=== PATIENT | male | born 1945 | race Caucasian/White ===

== ENCOUNTER 2019-09-06 20:26 | Inpatient (IN) | payer OTHER, MEDICARE ==
--- NOTE | 2019-09-06 20:43 | RADIOLOGY REPORT (SQ) ---
EXAM DESCRIPTION: CT HEAD WITHOUT IV CONTRAST COMPLETED DATE/TME: 09/06/2019 20:29 : CLINICAL HISTORY: 74 years Male signs symptoms stroke COMPARISON: None. TECHNIQUE: Contiguous axial CT images obtained through the brain without IV contrast. This exam was performed according to our department optimization program which includes automated exposure control, adjustment of the mA and/or kv according to patient size and/or use of iterative reconstruction technique. FINDINGS: Study is technically suboptimal. The ventricles and sulci are prominent consistent with atrophic changes. Previous infarct in the right MCA distribution involving predominantly the right frontal lobe but also segments of the basal ganglia and parietal lobe Microvascular ischemic changes. No midline shift or mass effect. No mass lesions. No acute hemorrhage. Atherosclerotic calcifications. No fluid or significant mucosal thickening in the visualized paranasal sinuses. No depressed calvarial fractures. IMPRESSION: No acute intracranial abnormality is identified. Dr. Todd was called and notified of the findings at 7:40 PM central time. Old right MCA infarct Generalized atrophy with microvascular ischemic changes.
[2019-09-06 21:11] LABS: HEMATOCRIT 29.7 % (37.9-51.0); HEMOGLOBIN 10.1 g/dL (13.5-17.0); MEAN CORPUSCULAR HEMOGLOBIN 29.3 pg (27.0-33.4); MEAN CORPUSCULAR HGB CONC 33.9 g/dL (32.0-36.0); MEAN CORPUSCULAR VOLUME 87 fl (80-97); PLATELET COUNT 352 10^3/uL (150-450); RED BLOOD COUNT 3.43 10^6/uL (4.35-5.55); RED CELL DISTRIBUTION WIDTH 15.2 % (11.5-14.0); WHITE BLOOD COUNT 12.2 10^3/uL (4.0-10.5)
[2019-09-06 21:16] LABS: INTERNATIONAL RATION (INR) 1.42; PARTIAL THROMBOPLASTIN TIME 35.6 SEC (23.5-35.8); PROTHROMBIN TIME 17.5 SEC (11.4-15.4)
--- NOTE | 2019-09-06 21:18 | RADIOLOGY REPORT (SQ) ---
XR CHEST 1 VIEW EXAM DATE: 09/06/2019 8:29 PM TIP LENGTH CHECKER HISTORY: Stroke. COMPARISON: None. FINDINGS: The cardiac silhouette is within normal limits. There is no pulmonary vascular congestion. No focal consolidation is identified. No pleural effusions or pneumothorax. IMPRESSION: No evidence of acute cardiopulmonary disease.
[2019-09-06 21:28] LABS: ABSOLUTE LYMPHOCYTES# (MANUAL) 0.4 10^3/uL (0.5-4.7); ABSOLUTE MONOCYTES # (MANUAL) 0.5 10^3/uL (0.1-1.4); BASOPHILS % (MANUAL) 2 % (0-2); EOSINOPHILS % (MANUAL) 0 % (0-6); LYMPHOCYTES % (MANUAL) 3 % (13-45); MONOCYTES % (MANUAL) 4 % (3-13); SEGMENTED NEUTROPHILS % (MAN) 91 % (42-78); TOTAL CELLS COUNTED 100
[2019-09-06 21:29] LABS: ALBUMIN 4.4 g/dL (3.5-5.0); ALKALINE PHOSPHATASE 135 U/L (38-126); ANION GAP 18 (5-19); ASPARTATE AMINO TRANSFERASE 22 U/L (17-59); BILIRUBIN,DIRECT 0.3 mg/dL (0.0-0.4); BILIRUBIN,TOTAL 0.5 mg/dL (0.2-1.3); CALCIUM 9.5 mg/dL (8.4-10.2); CARBON DIOXIDE 15 mmol/L (22-30); CHLORIDE 101 mmol/L (98-107); CREATINE KINASE 98 U/L (55-170); GLUCOSE 179 mg/dL (75-110); TOTAL PROTEIN 7.9 g/dL (6.3-8.2)
[2019-09-06 21:30] LABS: ANISOCYTOSIS SLIGHT; PLATELET COMMENT ADEQUATE
[2019-09-06 21:35] LABS: POTASSIUM 6.5 mmol/L (3.6-5.0)
[2019-09-06 21:37] LABS: CREATINE KINASE MB 4.39 ng/mL (<4.55); TROPONIN I 0.032 ng/mL
[2019-09-06] MEDS ORDERED: SODIUM BICARBONATE 8.4% INJ 50 MEQ/50 ML DISP.SYRIN IV ONE (21:40)
[2019-09-06 21:41] LABS: BLOOD UREA NITROGEN 150 mg/dL (7-20)
[2019-09-06] MEDS ORDERED: CALCIUM GLUCONATE 1000 MG/10 ML INJ IV ONE (21:43)
[2019-09-06] MEDS ORDERED: DEXTROSE 50%-WATER 25 GM/50 ML DISP.SYRIN IV ONE (21:44)
[2019-09-06] MEDS ORDERED: INSULIN REG, HUMAN 100 UNIT/ML 3 ML VIAL (PYX) IV ONE (21:46)
[2019-09-06] MEDS ORDERED: NORMAL SALINE 1000 ML 1,000 ML IV ONE (21:47)
--- NOTE | 2019-09-06 22:37 | EKG REPORT ---
SEVERITY:- ABNORMAL ECG - SINUS RHYTHM FIRST DEGREE AV BLOCK RIGHT BUNDLE BRANCH BLOCK INFERIOR INFARCT, AGE INDETERMINATE : Confirmed by: Guera Michael 06-Sep-2019 22:35:38
[2019-09-06 23:39] LABS: APPEARANCE,URINE TURBID; BILIRUBIN,URINE NEGATIVE (NEGATIVE); COLOR,URINE YELLOW; GLUCOSE, URINE 50 mg/dL (NEGATIVE); KETONES,URINE NEGATIVE (NEGATIVE); LEUKOCYTE ESTERASE,URINE LARGE (NEGATIVE); NITRITE,URINE NEGATIVE (NEGATIVE); PROTEIN,URINE 100 mg/dL (NEGATIVE); URINE SPECIFIC GRAVITY 1.011; UROBILINOGEN,URINE NEGATIVE mg/dL (<2.0)
[2019-09-07] MEDS ORDERED: SULFAMETHOX/TRIMETH 800-160 MG/10 ML VIAL IV ONE (00:29)
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
[2019-09-07] MEDS ORDERED: DEXTROSE 5%-NORMAL SALINE 1,000 ML IV PRN (01:12)
[2019-09-07] MEDS ORDERED: MAG HYDROX/AL HYDROX/SIMETH SUSP 30 ML UDCUP PO PRN (01:12)
[2019-09-07] MEDS ORDERED: ONDANSETRON HCL INJ/PF 4 MG/2 ML SDV IV PRN (01:12)
[2019-09-07] MEDS ORDERED: MAGNESIUM HYDROXIDE SUSP 30 ML UDCUP PO PRN (01:12)
[2019-09-07] MEDS ORDERED: DEXTROSE 50%-WATER 25 GM/50 ML DISP.SYRIN IV PRN ×2 (01:20)
[2019-09-07] MEDS ORDERED: DEXTROSE 40% GEL 15 GM TUBE PO PRN ×2 (01:20)
[2019-09-07] MEDS ORDERED: ACETAMINOPHEN 325 MG TABLET PO PRN (01:20)
[2019-09-07] MEDS ORDERED: GLUCAGON,HUMAN RECOMB 1 MG INJ IM PRN (01:20)
[2019-09-07] MEDS ORDERED: MEROPENEM 1 GM VIAL IV ONE (01:21)
[2019-09-07] MEDS ORDERED: SODIUM POLYSTYRENE SULFONATE 15 GM/60 ML PO ONE (01:25)
[2019-09-07 06:23] LABS: ANION GAP 18 (5-19); CALCIUM 9.2 mg/dL (8.4-10.2); CARBON DIOXIDE 13 mmol/L (22-30); CHLORIDE 107 mmol/L (98-107); GLUCOSE 126 mg/dL (75-110); POTASSIUM 5.5 mmol/L (3.6-5.0)
[2019-09-07 06:31] LABS: BLOOD UREA NITROGEN 140 mg/dL (7-20)
[2019-09-07] MEDS: HEPARIN SOD (PORCINE) 5,000 UNIT/ML 1 ML VIAL SUBCUT SCH ×3 (06:58→21:42)
[2019-09-07] MEDS: PANTOPRAZOLE SODIUM 20 MG TABLET.DR PO SCH (06:59)
[2019-09-07] MEDS: INSULIN REG, HUMAN 100 UNIT/ML 3 ML VIAL (PYX) SUBCUT SCH ×4 (08:39→22:05)
[2019-09-07] MEDS: DOCUSATE SODIUM 100 MG/10 ML UDC PO SCH ×2 (10:32→18:51)
--- NOTE | 2019-09-07 11:11 | ST Inp Modified Barium Swallow ---
Medical Diagnosis - Medical Diagnoses Medical Diagnosis Description & ICD-10 Code(s): CVA, dysphagia ST Inpatient [facility] [place] - General Date: 09/07/19 Date of Onset: 09/06/19 - History -: Medical - per EMR: patient was admitted 09/06 with weakness and altered mental status. Prior medical hisotry includes prior stroke with residual left deficits. Deficits are apparently worse now with possible new event. Patient failed his initial nursing swallow screen due to reduced alertness, failed second screen due to coughing. Limited history due to patient currently non-verbal, no family present currently, and no past admissions to this hospital. At bedside, arminda demonstrated very poor oral control of PO trials and overt signs of aspiration with thin liquids. Medications: Medications Reviewed Allergies: Refer to medical record - Subjective Current Nutritional Means: PO Current PO Diet: Pureed, Thickened liquids - nectar Current Symptoms: Coughing Pain: unable to communicate, no signs/symptoms of pain - Objective Assessment: Upright, Left Lateral - Food Trials Food Trials Used: Thin liquids, [place] thick liquids, Pureed The Patient: fed by ST - Assessment Labial Function: Impaired Lingual Function: Impaired Mandibular Function: Within Functional Limits Dentition: Partial Velo-Pharyngeal Function: Unremarkable Laryngeal Function: no volitional cough/clear - largely non-verbal, diffiuclty following directions - Pharyngeal Stage Initiation of Pharyngeal Stage: Delayed - bolus fully in valleculae, entering pyriform prior to initiation of the swallow Decreased Laryngeal Elevation: No Reduced Velo-Pharyngeal Closure: no Reduced Pressure Generation: No Reduced Tongue Base Retraction: No Pre-Swallowing Pooling in Valleculae: Significant Pre-Swallowing Pooling in Pyriforms: Moderate Reduced Thyro-Hyiod Approximation: No Reduced Epiglottic Excursion: No Reduced Pharyngeal Peristalsis: No Post Swallow Residuals in Valleculae: None Post Swallow Residuals in Pyriforms: None - Impression/Summary Laryngeal Penetration: Yes - penetration occured with cup sip trial of thin liquid, and sequential straw sip trial of nectar liquid Tracheal Aspiration: yes - aspiration occured on cup sip trial of thin liquid Compensatory Strategies: Patient unable to complete compensatory strategies due to inability to follow directions. Risk of Aspiration: Severe Risk Due To: Patient is at severe risk of aspiration due to significant delay in the swallow reflex, causing bolus to enter the airway at times. This risk is reduced, but not eliminated, with use of nectar thick liquids. - Recommendations Solid Diet Recommendations: Pureed Liquid Diet Recommendations: [place]-Thick Strict Aspitarion Precautions: Yes Dysphagia Therapy with FRUIT PRESS OPERATOR: Yes Recommended Techniques: Fully Upright During Meal, Small Bites and Sips Other Recommendations: Straw use increased risk of aspiration. Due to positioning, straws may be needed. Patient should only take single straw sips, staff should use pinched straw to ensure adequate pacing. - Time Total Time: 30 - Nursing notified of results. Total Timed Minutes: 30
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
--- NOTE | 2019-09-07 11:23 | RADIOLOGY REPORT (SQ) ---
EXAM DESCRIPTION: ANKIT SWALLOW COMPLETED DATE/TIME: 09/07/2019 10:53 am REASON FOR STUDY: CVA, dysphagia COMPARISON: None. TECHNIQUE: Videofluoroscopic swallowing examination was performed in conjunction with speech patholo gy. Videofluoroscopic imaging was obtained and reviewed and these are the findings: RADIATION DOSE: 1 MINUTES 48 SECONDS OF FLUOROSCOPY WAS USED. 1 images saved to PACS. LIMITATIONS: None FINDINGS: The patient was brought into the fluoro room and placed upright on a modified barium swall ow chair. The patient was then given multiple consistencies mixed with barium to swallow under live fluoroscopic video guidance. According to the Speech Pathologist there was suspected laryngeal penet ration and aspiration with thin liquids. Penetration was seen with thin nectar thick liquids. Other consistencies swallowed without incidence. IMPRESSION: LARYNGEAL PENETRATION AND ASPIRATION ABOVE. PLEASE SEE SPEECH PATHOLOGIST REPORT FOR OTHER FINDINGS AND RECOMMENDATIONS. COMMENT: Quality ID [id number]: Final reports for procedures using fluoroscopy that document radiation exp osure indices, or exposure time and number of fluorographic images (if radiation exposure indices are not available) TECHNICAL DOCUMENTATION: JOB ID: [id number] 2010 [employer]- All Rights Reserved Reading location - IP/workstation name: [email or web address]
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
[2019-09-07] MEDS: NORMAL SALINE 1000 ML 1,000 ML IV PRN ×2 (12:58→21:43)
--- NOTE | 2019-09-07 18:35 | RADIOLOGY REPORT (SQ) ---
EXAM DESCRIPTION: U/S RETROPERITON LTD COMPLETED DATE/TIME: 09/07/2019 6:07 pm REASON FOR STUDY: JULES COMPARISON: None. TECHNIQUE: Dynamic and static grayscale images acquired of the kidneys and bladder and recorded on P ACS. Additional selected color Doppler and spectral images recorded. LIMITATIONS: None. FINDINGS: RIGHT KIDNEY: Normal size, 9.3 cm. Normal echogenicity. No solid or suspicious masses . No hydronephrosis. No calcifications. LEFT KIDNEY: Normal size, 9.8 cm. Normal echogenicity. No solid or suspicious masses. No hydro nephrosis. No calcifications. BLADDER: Paulino catheter is present. The bladder is not evaluated. OTHER FINDINGS: No other significant finding. IMPRESSION: Normal kidneys. TECHNICAL DOCUMENTATION: JOB ID: [id number] 2010 [employer]- All Rights Reserved Reading location - IP/workstation name: [email or web address]
[2019-09-08] MEDS: HYDRALAZINE HCL INJ/PF 20 MG/1 ML SDV IV PRN (04:31)
[2019-09-08] MEDS: NORMAL SALINE 1000 ML 1,000 ML IV PRN ×3 (04:40→19:55)
[2019-09-08] MEDS: HEPARIN SOD (PORCINE) 5,000 UNIT/ML 1 ML VIAL SUBCUT SCH ×3 (05:10→22:15)
[2019-09-08] MEDS: PANTOPRAZOLE SODIUM 20 MG TABLET.DR PO SCH (05:10)
[2019-09-08 05:14] LABS: HEMATOCRIT 29.7 % (37.9-51.0); HEMOGLOBIN 10.5 g/dL (13.5-17.0); MEAN CORPUSCULAR HEMOGLOBIN 30.2 pg (27.0-33.4); MEAN CORPUSCULAR HGB CONC 35.3 g/dL (32.0-36.0); MEAN CORPUSCULAR VOLUME 86 fl (80-97); PLATELET COUNT 318 10^3/uL (150-450); RED BLOOD COUNT 3.47 10^6/uL (4.35-5.55); RED CELL DISTRIBUTION WIDTH 15.1 % (11.5-14.0); WHITE BLOOD COUNT 9.8 10^3/uL (4.0-10.5)
[2019-09-08 05:49] LABS: ANION GAP 15 (5-19); CALCIUM 9.1 mg/dL (8.4-10.2); CARBON DIOXIDE 13 mmol/L (22-30); CHLORIDE 116 mmol/L (98-107); CHOLESTEROL 112.18 mg/dL (0-200); GLUCOSE 101 mg/dL (75-110); TRIGLYCERIDES 144 mg/dL (<150)
[2019-09-08 05:59] LABS: DIRECT LDL 50 mg/dL (<100)
[2019-09-08 06:09] LABS: BLOOD UREA NITROGEN 89 mg/dL (7-20)
[2019-09-08] MEDS ORDERED: HYDRALAZINE HCL INJ/PF 20 MG/1 ML SDV IV ONE (06:45)
[2019-09-08] MEDS: INSULIN REG, HUMAN 100 UNIT/ML 3 ML VIAL (PYX) SUBCUT SCH ×4 (07:59→22:03)
[2019-09-08] MEDS ORDERED: METOPROLOL TARTRATE PF/INJ 5 MG/5 ML SDV IV ONE (08:00)
[2019-09-08] MEDS ORDERED: MEROPENEM 500 MG VIAL IV SCH (10:00)
[2019-09-08] MEDS ORDERED: LEVETIRACETAM 500 MG TABLET PO SCH (10:00)
[2019-09-08] MEDS: DOCUSATE SODIUM 100 MG/10 ML UDC PO SCH (10:22)
[2019-09-08] MEDS: METOPROLOL TARTRATE 50 MG TABLET PO SCH ×2 (10:33→22:15)
[2019-09-08] MEDS: MEROPENEM 500 MG in NORMAL SALINE 50 ML IV SCH (10:34)
--- NOTE | 2019-09-08 11:49 | PDOC PROGRESS REPORT ---
Subjective Progress Note for:: 09/08/19 Reason For Visit: Patient seen today. He still remains nonverbal from his expressive aphasia. He has got IV fluids going. No changes in antibiotics. Labs and medications were reviewed. Physical Exam Vital Signs: Temp Pulse Resp BP Pulse Ox 98.0 F 143 H 20 153/62 H 100 09/08/19 07:35 09/08/19 07:35 09/08/19 07:35 09/08/19 07:35 09/08/19 07:35 Intake & Output 09/07/19 09/08/19 09/09/19 06:59 06:59 06:59 Intake Total 1000 3560 Output Total 1125 3025 Balance -125 535 Weight 57.5 kg 59 kg General appearance: PRESENT: no acute distress Respiratory exam: PRESENT: clear to auscultation vandana. ABSENT: crackles Cardiovascular exam: PRESENT: +S1, +S2 GI/Abdominal exam: PRESENT: normal bowel sounds, soft. ABSENT: organomegaly, tenderness Extremities exam: ABSENT: pedal edema Neurological exam: PRESENT: alert, awake Psychiatric exam: PRESENT: appropriate affect Results Laboratory Results: 09/08/19 04:26 09/08/19 04:26 09/08/19 09/08/19 04:26 04:26 WBC 9.8 RBC 3.47 L Hgb 10.5 L Hct 29.7 L MCV 86 MCH 30.2 MCHC 35.3 RDW 15.1 H Plt Count 318 Sodium 144.1 Potassium 5.0 Chloride 116 H Carbon Dioxide 13 L Anion Gap 15 BUN 89 H D Creatinine 3.27 H Est GFR ( Amer) 22 L Glucose 101 Calcium 9.1 Magnesium 1.6 Triglycerides 144 Cholesterol 112.18 LDL Cholesterol Direct 50 VLDL Cholesterol 29.0 HDL Cholesterol 34 L 09/07/19 00:16 Blood Blood Culture (PCR) - Final Staphylococcus Species 09/06/19 09/06/19 20:57 20:57 Creatine Kinase 98 CK-MB (CK-2) 4.39 Troponin I 0.032 Impressions: Chest X-Ray 09/06/19 20:29 IMPRESSION: No evidence of acute cardiopulmonary disease. Head CT 09/06/19 20:29 IMPRESSION: No acute intracranial abnormality is identified. Dr. Todd was called and notified of the findings at 7:40 PM central time. Old right MCA infarct Generalized atrophy with microvascular ischemic changes. Modified Barium Swallow 09/07/19 00:00 IMPRESSION: LARYNGEAL PENETRATION AND ASPIRATION ABOVE. PLEASE SEE SPEECH PATHOLOGIST REPORT FOR OTHER FINDINGS AND RECOMMENDATIONS. Renal Ultrasound 09/07/19 00:00 IMPRESSION: Normal kidneys. Assessment & Plan - Diagnosis (1) Acute kidney injury superimposed on CKD Is this a current diagnosis for this admission?: Yes Plan: Nonoliguric. Good urine output. Renal numbers shows improving creatinine. Continue on current guidelines. No indications for renal replacements. (2) Acute hyperkalemia Is this a current diagnosis for this admission?: Yes Plan: Resolved. Monitor. (3) Cerebrovascular disease Is this a current diagnosis for this admission?: Yes Plan: Dense left angel-plegia. Status quo. (4) Hypertension Qualifiers: Hypertension type: essential hypertension Qualified Code(s): I10 - Essential (primary) hypertension Is this a current diagnosis for this admission?: Yes Plan: Fairly well controlled. (5) Urinary tract infection Qualifiers: Urinary tract infection type: site unspecified Hematuria presence: without hematuria Qualified Code(s): N39.0 - Urinary tract infection, site not s pecified Is this a current diagnosis for this admission?: Yes Plan: On antibiotics. (6) Metabolic acidosis Plan: Stable. See improvement with improving renal functions. (7) Dysphagia Plan: Status quo.
--- NOTE | 2019-09-08 15:32 | PDOC PROGRESS REPORT ---
Subjective Progress Note for:: 09/08/19 Subjective:: No adverse events overnight. Patient remains nonverbal. He is more alert today however. Urine output is improving. Creatinine is trending down. He was a little tachycardic this morning but likely because he supposed to be on metoprolol and has not been getting that. Reason For Visit: ACUTE KIDNEY INJURY,ACUTE HYPERKALEMIS,LETHARGY Physical Exam Vital Signs: Temp Pulse Resp BP Pulse Ox 98.6 F 82 20 125/77 100 09/08/19 11:59 09/08/19 11:59 09/08/19 11:59 09/08/19 11:59 09/08/19 11:59 Intake & Output 09/07/19 09/08/19 09/09/19 06:59 06:59 06:59 Intake Total 1000 3560 50 Output Total 1125 3025 Balance -125 535 50 Weight 57.5 kg 59 kg General appearance: PRESENT: no acute distress, disheveled, thin Respiratory exam: PRESENT: clear to auscultation vandana, symmetrical, unlabored. ABSENT: accessory muscle use, chest wall tenderness, crackles, prolonged expiratory phas, retraction, rhonchi, tachypnea, wheezes Cardiovascular exam: PRESENT: tachycardia Pulses: PRESENT: normal carotid pulses Vascular exam: PRESENT: normal capillary refill GI/Abdominal exam: PRESENT: normal bowel sounds, soft. ABSENT: distended, guarding, rebound, tenderness Extremities exam: ABSENT: clubbing, pedal edema Musculoskeletal exam: PRESENT: other - He has upper extremity muscle contractures on the left side and lays in bed with his left lower extremity flexed at the hip and the knee with the hip in adduction Neurological exam: PRESENT: awake, aphasic Skin exam: PRESENT: dry, warm Results Laboratory Results: 09/08/19 04:26 09/08/19 04:26 09/08/19 09/08/19 04:26 04:26 WBC 9.8 RBC 3.47 L Hgb 10.5 L Hct 29.7 L MCV 86 MCH 30.2 MCHC 35.3 RDW 15.1 H Plt Count 318 Sodium 144.1 Potassium 5.0 Chloride 116 H Carbon Dioxide 13 L Anion Gap 15 BUN 89 H D Creatinine 3.27 H Est GFR ( Amer) 22 L Glucose 101 Calcium 9.1 Magnesium 1.6 Triglycerides 144 Cholesterol 112.18 LDL Cholesterol Direct 50 VLDL Cholesterol 29.0 HDL Cholesterol 34 L 09/07/19 00:16 Blood Blood Culture (PCR) - Final Staphylococcus Species 09/06/19 02 20:57 20:57 Creatine Kinase 98 CK-MB (CK-2) 4.39 Troponin I 0.032 Impressions: Chest X-Ray 09/06/19 20:29 IMPRESSION: No evidence of acute cardiopulmonary disease. Head CT 09/06/19 20:29 IMPRESSION: No acute intracranial abnormality is identified. Dr. Todd was called and notified of the findings at 7:40 PM central time. Old right MCA infarct Generalized atrophy with microvascular ischemic changes. Modified Barium Swallow 09/07/19 00:00 IMPRESSION: LARYNGEAL PENETRATION AND ASPIRATION ABOVE. PLEASE SEE SPEECH PATHOLOGIST REPORT FOR OTHER FINDINGS AND RECOMMENDATIONS. Renal Ultrasound 09/07/19 00:00 IMPRESSION: Normal kidneys. Assessment and Plan - Diagnosis (1) Acute hyperkalemia Is this a current diagnosis for this admission?: Yes Plan: Resolved (2) Acute kidney injury superimposed on CKD Is this a current diagnosis for this admission?: Yes Plan: Improving with IV fluids, nephrology consulted (3) Cerebrovascular disease Is this a current diagnosis for this admission?: Yes Plan: Continue supportive care (4) Chronic anticoagulation Is this a current diagnosis for this admission?: Yes Plan: I am not sure why he has been on anticoagulation. I cannot find anything in the chart to tell me why. He is not in atrial fibrillation and I do not see anything in the chart that gives me a history of thromboembolic disease. Coumadin is on hold for now. (5) Urinary tract infection Qualifiers: Urinary tract infection type: site unspecified Hematuria presence: without hematuria Qualified Code(s): N39.0 - Urinary tract infection, site not specified Is this a current diagnosis for this admission?: Yes Plan: Currently very broadly covered with meropenem, culture pending. He had a blood culture turned positive for looks like a Staphylococcus species so this is probably a contaminant. There is a gram-negative growing in his urine. - Plan Summary Summary: Patient is admitted to a telemetry bed where he will receive routine supportive and symptomatic cares. His acute kidney injury will be addressed by hydration and active reduction of his potassium with Kayexalate. It is unknown to the family as to why he is on chronic sub-therapeutic dose anticoagulation and as such this will be discontinued at this time, but may be resumed for a scientifically valid reason by his primary care provider at a later date. Patient will be continued on his usual home medications as appropriate for control of his coronary artery disease and hypertension. A nephrology con sultation will be obtained with Dr. Negrete due to the patient's extreme degree of acute renal failure and unknown agree underlying chronic kidney disease. A physical therapy consultation as well as occupational therapy consultation and speech therapy consultation will be obtained for post stroke evaluation and recommendations. Patient's urinary tract infection will be treated with a single dose of meropenem initially with further dosing to be determined per pharmacy and Dr. Negrete. - Time Time Spent with patient: 15-24 minutes
[2019-09-09] MEDS: HYDRALAZINE HCL INJ/PF 20 MG/1 ML SDV IV PRN ×2 (02:06→08:44)
[2019-09-09] MEDS: NORMAL SALINE 1000 ML 1,000 ML IV PRN ×2 (02:09→08:51)
[2019-09-09 05:49] LABS: ANION GAP 10 (5-19); BLOOD UREA NITROGEN 59 mg/dL (7-20); CARBON DIOXIDE 16 mmol/L (22-30); CHLORIDE 120 mmol/L (98-107); GLUCOSE 121 mg/dL (75-110); POTASSIUM 5.1 mmol/L (3.6-5.0)
[2019-09-09] MEDS: HEPARIN SOD (PORCINE) 5,000 UNIT/ML 1 ML VIAL SUBCUT SCH ×3 (05:52→22:24)
[2019-09-09] MEDS: PANTOPRAZOLE SODIUM 20 MG TABLET.DR PO SCH (05:53)
[2019-09-09] MEDS: INSULIN REG, HUMAN 100 UNIT/ML 3 ML VIAL (PYX) SUBCUT SCH ×4 (08:42→22:26)
[2019-09-09] MEDS: LEVETIRACETAM 500 MG TABLET PO SCH ×2 (08:42→22:24)
[2019-09-09] MEDS: 1/2 NORMAL SALINE 1,000 ML IV PRN (10:20)
[2019-09-09] MEDS: DOCUSATE SODIUM 100 MG/10 ML UDC PO SCH (10:20)
[2019-09-09] MEDS: METOPROLOL TARTRATE 50 MG TABLET PO SCH ×2 (10:20→22:24)
[2019-09-09] MEDS: MEROPENEM 500 MG in NORMAL SALINE 50 ML IV SCH (10:21)
[2019-09-09] MEDS: MAGNESIUM SULFATE/D5W 1 GM/100 ML RTUPB IV SCH ×2 (11:17→13:15)
--- NOTE | 2019-09-09 13:11 | PDOC PROGRESS REPORT ---
Subjective Progress Note for:: 09/09/19 Subjective:: No adverse events overnight. Patient remains nonverbal. He sitting in bed watching a cooking show on television. Urine output remains good. Vital signs been stable. Oral intake overall remains poor. Reason For Visit: ACUTE KIDNEY INJURY,ACUTE HYPERKALEMIS,LETHARGY Physical Exam Vital Signs: Temp Pulse Resp BP Pulse Ox 97.8 F 81 16 140/72 H 100 09/09/19 08:24 09/09/19 12:50 09/09/19 12:50 09/09/19 12:50 09/09/19 12:50 Intake & Output 09/08/19 09/09/19 09/10/19 06:59 06:59 06:59 Intake Total 3560 3545 1222 Output Total 3025 2405 Balance 535 1140 1222 Weight 59 kg 63.4 kg General appearance: PRESENT: no acute distress, disheveled, thin Respiratory exam: PRESENT: clear to auscultation vandana, symmetrical, unlabored. ABSENT: accessory muscle use, chest wall tenderness, crackles, prolonged expiratory phas, retraction, rhonchi, tachypnea, wheezes Cardiovascular exam: PRESENT: tachycardia Pulses: PRESENT: normal carotid pulses Vascular exam: PRESENT: normal capillary refill GI/Abdominal exam: PRESENT: normal bowel sounds, soft. ABSENT: distended, guarding, rebound, tenderness Extremities exam: ABSENT: clubbing, pedal edema Musculoskeletal exam: PRESENT: other - He has upper extremity muscle contractures on the left side and lays in bed with his left lower extremity flexed at the hip and the knee with the hip in adduction Neurological exam: PRESENT: awake, aphasic Skin exam: PRESENT: dry, warm Results Laboratory Results: 09/08/19 04:26 09/09/19 04:30 09/09/19 04:30 Sodium 145.5 H Potassium 5.1 H Chloride 120 H Carbon Dioxide 16 L Anion Gap 10 BUN 59 H Creatinine 2.31 H Est GFR ( Amer) 33 L Glucose 121 H Calcium 9.0 Magnesium 1.4 L 09/07/19 00:16 Blood Blood Culture (PCR) - Final Staphylococcus Species 09/06/19 09/06/19 20:57 20:57 Creatine Kinase 98 CK-MB (CK-2) 4.39 Troponin I 0.032 Impressions: Chest X-Ray 09/06/19 20:29 IMPRESSION: No evidence of acute cardiopulmonary disease. Head CT 09/06/19 20:29 IMPRESSION: No acute intracranial abnormality is identified. Dr. Todd was called and notified of the findings at 7:40 PM central time. Old right MCA infarct Generalized atrophy with microvascular ischemic changes. Modified Barium Swallow 09/07/19 00:00 IMPRESSION: LARYNGEAL PENETRATION AND ASPIRATION ABOVE. PLEASE SEE SPEECH PATHOLOGIST REPORT FOR OTHER FINDINGS AND RECOMMENDATIONS. Renal Ultrasound 09/07/19 00:00 IMPRESSION: Normal kidneys. Assessment and Plan - Diagnosis (1) Acute hyperkalemia Is this a current diagnosis for this admission?: Yes Plan: Resolved (2) Acute kidney injury superimposed on CKD Is this a current diagnosis for this admission?: Yes Plan: Improving with IV fluids, nephrology consulted (3) Cerebrovascular disease Is this a current diagnosis for this admission?: Yes Plan: Continue supportive care (4) Chronic anticoagulation Is this a current diagnosis for this admission?: Yes Plan: I am not sure why he has been on anticoagulation. I cannot find anything in the chart to tell me why. He is not in atrial fibrillation and I do not see anything in the chart that gives me a history of thromboembolic disease. Coumadin is on hold for now. (5) Urinary tract infection Qualifiers: Urinary tract infection type: site unspecified Hematuria presence: without hematuria Qualified Code(s): N39.0 - Urinary tract infection, site not specified Is this a current diagnosis for this admission?: Yes Plan: Currently very broadly covered with meropenem, culture pending. He had a blood culture turned positive for looks like a Staphylococcus species so this is probably a contaminant. There is a gram-negative growing in his urine. - Plan Summary Summary: Patient is admitted to a telemetry bed where he will receive routine supportive and symptomatic cares. His acute kidney injury will be addressed by hydration and active reduction of his potassium with Kayexalate. It is unknown to the family as to why he is on chronic sub-therapeutic dose anticoagulation and as such this will be discontinued at this time, but may be resumed for a scientifically valid reason by his primary care provider at a later date. Patient will be continued on his usual home medications as appropriate for control of his coronary artery disease and hypertension. A nephrology consultation will be obtained with Dr. Negrete due to the patient's extreme degree of acute renal failure and unknown agree underlying chronic kidney disease. A physical therapy consultation as well as occupational therapy consultation and speech therapy consultation will be obtained for post stroke evaluation and recommendations. Patient's urinary tract infection will be treated with a single dose of meropenem initially with further dosing to be determined per pharmacy and Dr. Negrete. - Time Time Spent with patient: 15-24 minutes
[2019-09-10] MEDS: 1/2 NORMAL SALINE 1,000 ML IV PRN ×2 (01:29→15:24)
[2019-09-10] MEDS: HYDRALAZINE HCL INJ/PF 20 MG/1 ML SDV IV PRN (01:34)
[2019-09-10] MEDS: HEPARIN SOD (PORCINE) 5,000 UNIT/ML 1 ML VIAL SUBCUT SCH ×3 (06:21→22:54)
[2019-09-10] MEDS: PANTOPRAZOLE SODIUM 20 MG TABLET.DR PO SCH (06:22)
[2019-09-10] MEDS: INSULIN REG, HUMAN 100 UNIT/ML 3 ML VIAL (PYX) SUBCUT SCH ×4 (07:56→22:55)
[2019-09-10] MEDS: LEVETIRACETAM 500 MG TABLET PO SCH ×2 (09:47→22:54)
[2019-09-10] MEDS: MEROPENEM 500 MG in NORMAL SALINE 50 ML IV SCH (09:47)
[2019-09-10] MEDS: DOCUSATE SODIUM 100 MG/10 ML UDC PO SCH (09:47)
[2019-09-10] MEDS: METOPROLOL TARTRATE 50 MG TABLET PO SCH ×2 (09:47→22:55)
--- NOTE | 2019-09-10 13:01 | PDOC PROGRESS REPORT ---
Subjective Progress Note for:: 09/10/19 Subjective:: No adverse events overnight. Patient remains nonverbal. Taking a nap. Urine output remains good. Vital signs been stable. Oral intake overall remains poor. Reason For Visit: ACUTE KIDNEY INJURY,ACUTE HYPERKALEMIS,LETHARGY Physical Exam Vital Signs: Temp Pulse Resp BP Pulse Ox 98.0 F 59 L 16 140/45 H 100 09/10/19 11:45 09/10/19 11:45 09/10/19 11:45 09/10/19 11:45 09/10/19 11:45 Intake & Output 09/09/19 09/10/19 09/11/19 06:59 06:59 06:59 Intake Total 3545 2830 50 Output Total 2405 1775 Balance 1140 1055 50 Weight 63.4 kg 62.4 kg General appearance: PRESENT: no acute distress, disheveled, thin Respiratory exam: PRESENT: clear to auscultation vandana, symmetrical, unlabored. ABSENT: accessory muscle use, chest wall tenderness, crackles, prolonged expiratory phas, retraction, rhonchi, tachypnea, wheezes Cardiovascular exam: PRESENT: tachycardia Pulses: PRESENT: normal carotid pulses Vascular exam: PRESENT: normal capillary refill GI/Abdominal exam: PRESENT: normal bowel sounds, soft. ABSENT: distended, guarding, rebound, tenderness Extremities exam: ABSENT: clubbing, pedal edema Musculoskeletal exam: PRESENT: other - He has upper extremity muscle contractures on the left side and lays in bed with his left lower extremity flexed at the hip and the knee with the hip in adduction Neurological exam: PRESENT: Drowsy but arousable, aphasic Skin exam: PRESENT: dry, warm Results Laboratory Results: 09/08/19 04:26 09/09/19 04:30 09/10/19 04:34 Magnesium 1.7 09/06/19 09/06/19 20:57 20:57 Creatine Kinase 98 CK-MB (CK-2) 4.39 Troponin I 0.032 Impressions: Chest X-Ray 09/06/19 20:29 IMPRESSION: No evidence of acute cardiopulmonary disease. Head CT 09/06/19 20:29 IMPRESSION: No acute intracranial abnormality is identified. Dr. Todd was called and notified of the findings at 7:40 PM central time. Old right MCA infarct Generalized atrophy with microvascular ischemic changes. Modified Barium Swallow 09/07/19 00:00 IMPRESSION: LARYNGEAL PENETRATION AND ASPIRATION ABOVE. PLEASE SEE SPEECH PATHOLOGIST REPORT FOR OTHER FINDINGS AND RECOMMENDATIONS. Renal Ultrasound 09/07/19 00:00 IMPRESSION: Normal kidneys. Assessment and Plan - Diagnosis (1) Acute hyperkalemia Is this a current diagnosis for this admission?: Yes Plan: Resolved (2) Acute kidney injury superimposed on CKD Is this a current diagnosis for this admission?: Yes Plan: Improving with IV fluids, nephrology consulted, creatinine trending down (3) Cerebrovascular disease Is this a current diagnosis for this admission?: Yes Plan: Continue supportive care (4) Chronic anticoagulation Is this a current diagnosis for this admission?: Yes Plan: I am not sure why he has been on anticoagulation. I cannot find anything in the chart to tell me why. He is not in atrial fibrillation and I do not see anything in the chart that gives me a history of thromboembolic disease. Coumadin is on hold for now. (5) Urinary tract infection Qualifiers: Urinary tract infection type: site unspecified Hematuria presence: without hematuria Qualified Code(s): N39.0 - Urinary tract infection, site not specified Is this a current diagnosis for this admission?: Yes Plan: Currently very broadly covered with meropenem, growing a pansensitive E. coli, will de-escalate antibiotics. He had a blood culture turned positive for looks like a Staphylococcus species so this is probably a contaminant. - Plan Summary Summary: Patient is admitted to a telemetry bed where he will receive routine supportive and symptomatic cares. His acute kidney injury will be addressed by hydration and active reduction of his potassium with Kayexalate. It is unknown to the family as to why he is on chronic sub-therapeutic dose anticoagulation and as such this will be discontinued at this time, but may be resumed for a scientifically valid reason by his primary care provider at a later date. Patient will be continued on his usual home medications as appropriate for control of his coronary artery disease and hypertension. A nephrology consultation will be obtained with Dr. Negrete due to the patient's extreme degree of acute renal failure and unknown agree underlying chronic kidney disease. A physical therapy consultation as well as occupational therapy consultation and speech therapy consultation will be obtained for post stroke evaluation and recommendations. Patient's urinary tract infection will be treated with a single dose of meropenem initially with further dosing to be determined per pharmacy and Dr. Negrete. - Time Time Spent with patient: 15-24 minutes
[2019-09-10 17:10] LABS: ANION GAP 10 (5-19); BLOOD UREA NITROGEN 43 mg/dL (7-20); CALCIUM 8.6 mg/dL (8.4-10.2); CARBON DIOXIDE 15 mmol/L (22-30); CHLORIDE 115 mmol/L (98-107); GLUCOSE 117 mg/dL (75-110); POTASSIUM 4.6 mmol/L (3.6-5.0)
[2019-09-11 06:23] LABS: ANION GAP 13 (5-19); BLOOD UREA NITROGEN 35 mg/dL (7-20); CALCIUM 8.5 mg/dL (8.4-10.2); CARBON DIOXIDE 15 mmol/L (22-30); CHLORIDE 111 mmol/L (98-107); GLUCOSE 93 mg/dL (75-110); POTASSIUM 4.4 mmol/L (3.6-5.0)
[2019-09-11] MEDS: PANTOPRAZOLE SODIUM 20 MG TABLET.DR PO SCH (06:43)
[2019-09-11] MEDS: HEPARIN SOD (PORCINE) 5,000 UNIT/ML 1 ML VIAL SUBCUT SCH ×3 (06:43→23:35)
[2019-09-11] MEDS: INSULIN REG, HUMAN 100 UNIT/ML 3 ML VIAL (PYX) SUBCUT SCH ×3 (08:43→17:57)
[2019-09-11] MEDS: METOPROLOL TARTRATE 50 MG TABLET PO SCH ×2 (10:23→23:36)
[2019-09-11] MEDS: DOCUSATE SODIUM 100 MG/10 ML UDC PO SCH (10:27)
[2019-09-11] MEDS: LEVETIRACETAM 500 MG TABLET PO SCH ×2 (10:27→23:36)
[2019-09-11] MEDS: MEROPENEM 500 MG in NORMAL SALINE 50 ML IV SCH (10:29)
--- NOTE | 2019-09-11 10:35 | CDI QUERY ---
CDI Query CDI Review: Dear Provider: To better reflect your patients severity of illness, morbidity, and resource utilization Please specify and document in the Progress Notes and Discharge Summary if you are monitoring / treating / evaluating any of the following conditions: Query Clinical indicators Please include in your Progress Notes and Discharge Summary if you agree with Nephrologys diagnoses: Expressive aphasia Metabolic acidosis Per Nephrology Notes: He still remains nonverbal from his expressive aphasia. Metabolic acidosis Labs on admission: Sodium 133.9 L Potassium 6.5 H* Chloride 101 Carbon Dioxide 15 L Anion Gap 18 BUN 150 H Creatinine 6.30 H Glucose 179 H Calcium 9.5 Total Bilirubin 0.5 AST 22 Alkaline Phosphatase 135 H The terms probable, suspected, likely, possible or still to be ruled out may be used if you are unable to determine the exact nature of a condition. Thank you, Clinical Documentation Physician Advisors RANDALL Kaur RN, BSN RN Office [phone] Office [phone]
--- NOTE | 2019-09-11 10:54 | CDI QUERY ---
CDI Query CDI Review: Dear Provider: To better reflect your patients severity of illness, morbidity, and resource utilization Please specify and document in the Progress Notes and Discharge Summary if you are monitoring / treating / evaluating any of the following conditions: Query Clinical indicators Metabolic encephalopathy Toxic encephalopathy Delirium Acute CVA Residual of prior CVA Unable to determine Other Per Hospitalist H&P: The patient has significant lethargy and is poorly responsive and is unable to contribute to his medical history. Family members provided inconsistent histories but all essentially agree that patient has been lethargic for the last several days and seemed to be considerably worse on the morning of 09/06/2019. He had become poorly responsive to verbal and tactile stimuli. Patient is unable to provide substantial input into his medical record (past medical history, past surgical history, social history and family medical history) due to his lethargy (altered mental status) Labs: WBC 12.2 H RBC 3.43 L Hgb 10.1 L Hct 29.7 L Sodium 133.9 L Potassium 6.5 H* Chloride 101 Carbon Dioxide 15 L Anion Gap 18 BUN 150 H Creatinine 6.30 H Glucose 179 H Alkaline Phosphatase 135 H Diagnoses: Acute on chronic renal failure; UTI; hyperkalemia Summary Note: A physical therapy consultation as well as occupational therapy consultation and speech therapy consultation will be obtained for post stroke evaluation and recommendations. The terms probable, suspected, likely, possible or still to be ruled out may be used if you are unable to determine the exact nature of a condition. Thank you, Clinical Documentation Physician Advisors RANDALL Kaur RN, BSN RN [email or web address] Office [phone] Office [phone]
[2019-09-11] MEDS: 1/2 NORMAL SALINE 1,000 ML IV PRN (11:19)
--- NOTE | 2019-09-11 17:01 | PDOC PROGRESS REPORT ---
Subjective Progress Note for:: 09/11/19 Subjective:: No adverse events overnight. Urine output is been good. He is been resting comfortably. He said something to me for the first time today, "thank you." He is been afebrile. Vital signs been stable. Oral intake is still very poor. Reason For Visit: ACUTE KIDNEY INJURY,ACUTE HYPERKALEMIS,LETHARGY Physical Exam Vital Signs: Temp Pulse Resp BP Pulse Ox 98.5 F 74 17 138/59 H 100 09/11/19 15:27 09/11/19 15:27 09/11/19 15:27 09/11/19 15:27 09/11/19 15:27 Intake & Output 09/10/19 09/11/19 09/12/19 06:59 06:59 06:59 Intake Total 2830 2250 Output Total 1775 1200 575 Balance 1055 1050 -575 Weight 62.4 kg 65.7 kg General appearance: PRESENT: no acute distress, disheveled, thin Respiratory exam: PRESENT: clear to auscultation vandana, symmetrical, unlabored. ABSENT: accessory muscle use, chest wall tenderness, crackles, prolonged expiratory phas, retraction, rhonchi, tachypnea, wheezes Cardiovascular exam: PRESENT: tachycardia Pulses: PRESENT: normal carotid pulses Vascular exam: PRESENT: normal capillary refill GI/Abdominal exam: PRESENT: normal bowel sounds, soft. ABSENT: distended, guarding, rebound, tenderness Extremities exam: ABSENT: clubbing, pedal edema Musculoskeletal exam: PRESENT: other - He has upper extremity muscle contractures on the left arm Neurological exam: PRESENT: Awake, mostly nonverbal Skin exam: PRESENT: dry, warm Results Laboratory Results: 09/08/19 04:26 09/11/19 04:57 09/10/19 09/11/19 04:34 04:57 Sodium 139.9 139.1 Potassium 4.6 4.4 Chloride 115 H 111 H Carbon Dioxide 15 L 15 L Anion Gap 10 13 BUN 43 H 35 H Creatinine 1.92 H 1.66 H Est GFR ( Amer) 41 L 49 L Glucose 117 H 93 Calcium 8.6 8.5 09/07/19 00:16 Blood Blood Culture (PCR) - Final Staphylococcus Species 09/06/19 09/06/19 20:57 20:57 Creatine Kinase 98 CK-MB (CK-2) 4.39 Troponin I 0.032 Impressions: Chest X-Ray 09/06/19 20: IMPRESSION: No evidence of acute cardiopulmonary disease. Head CT 09/06/19: IMPRESSION: No acute intracranial abnormality is identified. Dr. Todd was called and notified of the findings at 7:40 PM central time. Old right MCA infarct Generalized atrophy with microvascular ischemic changes. Modified Barium Swallow 09/07/19 00:00 IMPRESSION: LARYNGEAL PENETRATION AND ASPIRATION ABOVE. PLEASE SEE SPEECH PATHOLOGIST REPORT FOR OTHER FINDINGS AND RECOMMENDATIONS. Renal Ultrasound 09/07/19 00:00 IMPRESSION: Normal kidneys. Assessment and Plan - Diagnosis (1) Acute hyperkalemia Is this a current diagnosis for this admission?: Yes Plan: Resolved (2) Acute kidney injury superimposed on CKD Is this a current diagnosis for this admission?: Yes Plan: Creatinine down to 1.66 now. His urine is very clear so I have stopped his IV fluids. Encouraging oral hydration. (3) Cerebrovascular disease Is this a current diagnosis for this admission?: Yes Plan: Continue supportive care (4) Chronic anticoagulation Is this a current diagnosis for this admission?: Yes Plan: It looks like he was started on Coumadin because of a history of atrial fibrillation that was diagnosed in middle of last year. Apparently his renal function was not very good at that time so he was put on Coumadin instead of Eliquis. If his renal function stays where it is now, he may be okay to discharge on Eliquis. (5) Urinary tract infection Qualifiers: Urinary tract infection type: site unspecified Hematuria presence: without hematuria Qualified Code(s): N39.0 - Urinary tract infection, site not specified Is this a current diagnosis for this admission?: Yes Plan: Pansensitive E. coli. I switched him to Keflex today. (6) Metabolic encephalopathy Is this a current diagnosis for this admission?: Yes Plan: Resolved. Mental status at baseline - Plan Summary Summary: Patient is admitted to a telemetry bed where he will receive routine supportive and symptomatic cares. His acute kidney injury will be addressed by hydration and active reduction of his potassium with Kayexalate. It is unknown to the family as to why he is on chronic sub-therapeutic dose anticoagulation and as such this will be discontinued at this time, but may be resumed for a scientifically valid reason by his primary care provider at a later date. Patient will be continued on his usual home medications as appropriate for control of his coronary artery disease and hypertension. A nephrology consultation will be obtained with Dr. Negrete due to the patient's extreme degree of acute renal failure and unknown agree underlying chronic kidney disease. A physical therapy consultation as well as occupational therapy consultation and speech therapy consultation will be obtained for post stroke evaluation and recommendations. Patient's urinary tract infection will be treated with a single dose of meropenem initially with further dosing to be determined per pharmacy and Dr. Negrete. - Time Time Spent with patient: 15-24 minutes
[2019-09-11] MEDS: CEPHALEXIN 500 MG CAPSULE PO SCH (23:36)
[2019-09-12] MEDS: INSULIN REG, HUMAN 100 UNIT/ML 3 ML VIAL (PYX) SUBCUT SCH ×5 (00:26→21:50)
[2019-09-12] MEDS: 1/2 NORMAL SALINE 1,000 ML IV PRN ×2 (00:40→10:00)
[2019-09-12] MEDS: CEPHALEXIN 500 MG CAPSULE PO SCH ×3 (05:43→21:25)
[2019-09-12] MEDS: HEPARIN SOD (PORCINE) 5,000 UNIT/ML 1 ML VIAL SUBCUT SCH ×2 (05:43→13:38)
[2019-09-12] MEDS: PANTOPRAZOLE SODIUM 20 MG TABLET.DR PO SCH (05:43)
[2019-09-12 07:06] LABS: ANION GAP 8 (5-19); BLOOD UREA NITROGEN 28 mg/dL (7-20); CALCIUM 8.4 mg/dL (8.4-10.2); CARBON DIOXIDE 17 mmol/L (22-30); CHLORIDE 111 mmol/L (98-107); GLUCOSE 94 mg/dL (75-110); POTASSIUM 4.4 mmol/L (3.6-5.0)
[2019-09-12] MEDS: DOCUSATE SODIUM 100 MG CAPSULE PO SCH (09:40)
[2019-09-12] MEDS: LEVETIRACETAM 500 MG TABLET PO SCH ×2 (09:44→20:31)
[2019-09-12] MEDS: METOPROLOL TARTRATE 50 MG TABLET PO SCH ×2 (09:44→21:25)
--- NOTE | 2019-09-12 16:06 | PDOC PROGRESS REPORT ---
Subjective Progress Note for:: 09/12/19 Subjective:: The patient is a 74 year old male with a past medical history for HTN, CVA (Lt hemiparesis), Seizures, DM2, and CKD who was admitted for JULES, UTI, with hyperkalemia. Patient was seen on morning rounds. He was found resting in bed, comfortably, on room air. He is alert and oriented to self. He does answer a few simple questions for me. He confirms that he is feeling well enough to discharge to home soon, would like to have a home health nurse, and has no questions or concerns at this time. He further denies chest pain, palpitations, dyspnea, abdominal pain, nausea and vomiting. No questions or concerns at this time. Reason For Visit: ACUTE KIDNEY INJURY,ACUTE HYPERKALEMIS,LETHARGY Physical Exam Vital Signs: Temp Pulse Resp BP Pulse Ox 97.9 F 59 L 16 157/57 H 99 09/12/19 11:29 09/12/19 14:00 09/12/19 11:29 09/12/19 11:31 09/12/19 11:31 Intake & Output 09/11/19 09/12/19 09/13/19 06:59 06:59 06:59 Intake Total 2250 1170 700 Output Total 1200 1875 Balance 1050 -705 700 Weight 65.7 kg 66.7 kg General appearance: PRESENT: no acute distress, cooperative, well-developed, well-nourished Head exam: PRESENT: atraumatic, normocephalic Eye exam: PRESENT: conjunctiva pink, EOMI, PERRLA. ABSENT: scleral icterus Mouth exam: PRESENT: moist, tongue midline Respiratory exam: PRESENT: clear to auscultation vandana, symmetrical, unlabored. ABSENT: rales, rhonchi, wheezes Cardiovascular exam: PRESENT: RRR, +S1, +S2. ABSENT: diastolic murmur, rubs, systolic murmur Pulses: PRESENT: normal dorsalis pedis pul Vascular exam: PRESENT: normal capillary refill Gentrourinary exam: PRESENT: indwelling catheter Extremities exam: ABSENT: calf tenderness, clubbing, full ROM - Left hem iparesis, pedal edema Neurological exam: PRESENT: alert, awake, oriented to person, oriented to place, oriented to situation, CN II-XII grossly intact, other - Primarily nonverbal; does answer a few simple questions. Follows commands.. ABSENT: oriented to time, motor sensory deficit Psychiatric exam: PRESENT: flat affect, normal mood. ABSENT: homicidal ideation, suicidal ideation Skin exam: PRESENT: dry, intact, warm. ABSENT: cyanosis, rash Results Laboratory Results: 09/08/19 04:26 09/12/19 06:10 09/12/19 06:10 Sodium 136.4 L Potassium 4.4 Chloride 111 H Carbon Dioxide 17 L Anion Gap 8 BUN 28 H Creatinine 1.42 H Est GFR ( Amer) 59 L Glucose 94 Calcium 8.4 09/07/19 00:16 Blood Blood Culture (PCR) - Final Staphylococcus Species 09/07/19 00:16 Blood Blood Culture - Final Staphylococcus Epidermidis 09/07/19 01:10 Blood Blood Culture - Final NO GROWTH IN 5 DAYS 09/06/19 09/06/19 20:57 20:57 Creatine Kinase 98 CK-MB (CK-2) 4.39 Troponin I 0.032 Impressions: Chest X-Ray 09/06/19 20:29 IMPRESSION: No evidence of acute cardiopulmonary disease. Head CT 09/06/19 20:29 IMPRESSION: No acute intracranial abnormality is identified. Dr. Todd was called and notified of the findings at 7:40 PM central time. Old right MCA infarct Generalized atrophy with microvascular ischemic changes. Modified Barium Swallow 09/07/19 00:00 IMPRESSION: LARYNGEAL PENETRATION AND ASPIRATION ABOVE. PLEASE SEE SPEECH PATHOLOGIST REPORT FOR OTHER FINDINGS AND RECOMMENDATIONS. Renal Ultrasound 09/07/19 00:00 IMPRESSION: Normal kidneys. Assessment and Plan - Diagnosis (1) Acute kidney injury superimposed on CKD Is this a current diagnosis for this admission?: Yes Plan: Significantly improved. Cr. 6.30-> 1.66-> 1.42 Have discontinued IV fluids. We will remove Paulino today. Encourage p.o. fluids. Avoid nephrotoxic medications as able. Follow-up chemistry. (2) Acute hyperkalemia Is this a current diagnosis for this admission?: Yes Plan: Secondary to JULES. Resolved (3) Chronic anticoagulation Is this a current diagnosis for this admission?: Yes Plan: Renal function has improved enough to allow for renally dosed Eliquis. (4) Coronary artery disease Qualifiers: Coronary Disease-Associated Artery/Lesion type: [place] artery [place] vs. transplanted heart: [place] heart Associated angina: without angina Qualified Code(s): I25.10 - Atherosclerotic heart disease of [place] coronary artery wit hout angina pectoris Is this a current diagnosis for this admission?: Yes Plan: Renally dosed Eliquis. Continue home dose Plavix. Continue Metoprolol and Imdur. (5) Hypertension Qualifiers: Hypertension type: essential hypertension Qualified Code(s): I10 - Essential (primary) hypertension Is this a current diagnosis for this admission?: Yes Plan: Continue Metoprolol 75 mg BID Continue home dose Imdur. IV Hydralazine as needed. (6) Urinary tract infection Qualifiers: Urinary tract infection type: site unspecified Hematuria presence: without hematuria Qualified Code(s): N39.0 - Urinary tract infection, site not specified Is this a current diagnosis for this admission?: Yes Plan: Pansensitive E. coli. Continue p.o. Keflex; Day 5 of 10. (7) Cerebrovascular disease Is this a current diagnosis for this admission?: Yes Plan: History of CVA with left-sided hemiparesis. Patient is primarily nonverbal at baseline and does require increased assistance with communication and meals. Continue supportive care - Time Time Spent with patient: 25-34 minutes Medications reviewed and adjusted accordingly: Yes Anticipated discharge: Home with Homehealth Within: within 24 hours
[2019-09-12] MEDS: APIXABAN 2.5 MG TABLET PO SCH (18:10)
[2019-09-13] MEDS: CEPHALEXIN 500 MG CAPSULE PO SCH ×2 (05:38→14:22)
[2019-09-13] MEDS: PANTOPRAZOLE SODIUM 20 MG TABLET.DR PO SCH (05:38)
[2019-09-13 07:28] LABS: ANION GAP 10 (5-19); BLOOD UREA NITROGEN 23 mg/dL (7-20); CALCIUM 8.3 mg/dL (8.4-10.2); CARBON DIOXIDE 18 mmol/L (22-30); CHLORIDE 110 mmol/L (98-107); POTASSIUM 4.1 mmol/L (3.6-5.0)
[2019-09-13 07:33] LABS: GLUCOSE 99 mg/dL (75-110)
[2019-09-13 07:44] LABS: HEMATOCRIT 26.2 % (37.9-51.0); HEMOGLOBIN 9.3 g/dL (13.5-17.0); MEAN CORPUSCULAR HGB CONC 35.5 g/dL (32.0-36.0); MEAN CORPUSCULAR VOLUME 84 fl (80-97); PLATELET COUNT 303 10^3/uL (150-450); RED CELL DISTRIBUTION WIDTH 15.3 % (11.5-14.0); WHITE BLOOD COUNT 7.3 10^3/uL (4.0-10.5)
[2019-09-13] MEDS: INSULIN REG, HUMAN 100 UNIT/ML 3 ML VIAL (PYX) SUBCUT SCH ×3 (08:10→17:14)
[2019-09-13] MEDS: DOCUSATE SODIUM 100 MG CAPSULE PO SCH (09:17)
[2019-09-13] MEDS: APIXABAN 2.5 MG TABLET PO SCH ×2 (09:31→17:16)
[2019-09-13] MEDS: LEVETIRACETAM 500 MG TABLET PO SCH (09:31)
[2019-09-13] MEDS: METOPROLOL TARTRATE 50 MG TABLET PO SCH (09:31)
[2019-09-13] MEDS ORDERED: CLOPIDOGREL BISULFATE 75 MG TABLET PO SCH (10:00)
[2019-09-13] MEDS ORDERED: ISOSORBIDE MONONITRATE 60 MG TAB.ER.24H PO SCH (10:00)
[2019-09-13 16:35] VITALS: BP 165/71
--- NOTE | 2019-09-15 16:54 | PDOC DISCHARGE SUMMARY ---
Impression - Admit/DC Date/PCP Admission Date/Primary Care Provider: 09/07/19 01:[facility] Discharge Date: 09/13/19 - Discharge Diagnosis (1) Acute kidney injury superimposed on CKD Is this a current diagnosis for this admission?: Yes (2) Acute hyperkalemia Is this a current diagnosis for this admission?: Yes (3) Chronic anticoagulation Is this a current diagnosis for this admission?: Yes (4) Coronary artery disease Is this a current diagnosis for this admission?: Yes (5) Hypertension Is this a current diagnosis for this admission?: Yes (6) Urinary tract infection Is this a current diagnosis for this admission?: Yes (7) Cerebrovascular disease Is this a current diagnosis for this admission?: Yes - Additional Information Resuscitation Status: Full Code Discharge Diet: Cardiac, Diabetic, Other (Comments) Discharge Activity: Activity As Tolerated, Balance Activity w/Rest, Slowly Increase Activity, Supervised Activity Referrals: [facility] [Primary [facility]] - Follow up as needed (patient will schedule ) Prescriptions: Apixaban [Eliquis 2.5 mg Tablet] 2.5 mg PO BID #60 tablet Cephalexin Monohydrate [Keflex 500 mg Capsule] 500 mg PO Q8 #8 capsule Home Medications: Clopidogrel Bisulfate [Plavix 75 mg Tablet] 75 mg PO DAILY 09/07/19 Doxazosin Mesylate 4 mg PO QHS 09/07/19 Ferrous Sulfate [Feosol 325 mg Tablet] 325 mg PO DAILY 09/07/19 Furosemide [Lasix 20 mg Tablet] 20 mg PO DAILY 09/07/19 Gemfibrozil [Lopid 600 mg Tablet] 600 mg PO BID 09/07/19 Hydrocodone/Acetaminophen [[place] 7.5-325 mg Tablet] 1 tab PO Q6HP PRN 09/07/19 Isosorbide Mononitrate [Imdur 60 mg Tablet.er] 60 mg PO DAILY 09/07/19 Levetiracetam [Keppra 500 mg Tablet] 750 mg PO BID 09/07/19 Lisinopril [Zestril] 40 mg PO Q12 09/07/19 Metoprolol Tartrate [Lopressor 50 mg Tablet] 75 mg PO Q12 09/07/19 Nitroglycerin [Nitrostat 0.4 mg (1/150 Gr) Tabs 25/Bottle] 0.4 mg SL Q5MP PRN 09/07/19 Omeprazole 40 mg PO DAILY 09/07/19 Pravastatin Sodium 20 mg PO QHS 09/07/19 Warfarin Sodium [Coumadin 2.5 mg Tablet] 2.5 mg PO DAILY 09/07/19 Acetaminophen [Tylenol 325 mg Tablet] 650 mg PO Q4HP PRN tablet 09/13/19 Apixaban [Eliquis 2.5 mg Tablet] 2.5 mg PO BID #60 tablet 09/13/19 Cephalexin Monohydrate [Keflex 500 mg Capsule] 500 mg PO Q8 #8 capsule 09/13/19 Docusate Sodium [Colace 100 mg Capsule] 100 mg PO DAILY capsule 09/13/19 History of Present Illiness History of Present Illness: Per H&P by Dr. Keys: PAUL LINDSAY is a 74 year old male who presented the emergency room with a several day history of lethargy. The patient has sig nificant lethargy and is poorly responsive and is unable to contribute to his medical history. Family members provided inconsistent histories but all essentially agree that patient has been lethargic for the last several days and seemed to be considerably worse on the morning of 09/06/2019. He had become poorly responsive to verbal and tactile stimuli. Family did not agree on any accompanying or associated signs and symptoms. They mostly denied prior similar symptoms. They did not identify any aggravating or ameliorating factors for the patient's lethargy. The patient was with the family in their vehicle when they were stopped by law enforcement for speeding and at that time stated they were on the way to the hospital because the patient needed to be seen. EMS arrived and picked the patient up to come to the hospital but before they could obtain substantial information the patient's family left the scene. In the emergency room patient was found to have a creatinine of 6.3 with a BUN of 150 and a potassium of 6.5. He was subsequently admitted to the hospital for further evaluation and treatment. Hospital Course Hospital Course: (1) Acute kidney injury superimposed on CKD Significantly improved; likely at baseline. Cr. 6.30-> 1.66-> 1.42 Patient was admitted to the IMCU on telemetry. She was supported with IV fluids; encouraged p.o. fluids. A perez catheter was placed for I&O monitoring. Nephrotoxic medications were avoided as able. (2) Acute hyperkalemia Secondary to JULES. Resolved (3) Chronic anticoagulation Renal function has improved enough to allow for renally dosed Eliquis. Coumadin has been discontinued. (4) Coronary artery disease Discharged home on renally dosed Eliquis. Continue home dose Plavix. Continue Metoprolol and Imdur. Patient remained chest pain free throughout admission. No abnormal telemetry changes. (5) Hypertension Continue Metoprolol 75 mg BID Continue home dose Imdur. (6) Urinary tract infection Pansensitive E. coli. Patient was initially placed on Rocephin; transitioned to p.o. Keflex once tolerating p.o. He was discharged w/ Rx to complete course of therapy. (7) Cerebrovascular disease History of CVA with left-sided hemiparesis. Patient is primarily nonverbal at baseline and does require increased assistance with communication and meals. Offered to arrange home health nursing; declined at this time. Physical Exam Vital Signs: Temp Pulse Resp BP Pulse Ox 98.1 F 70 15 165/71 H 100 09/13/19 16:07 09/13/19 16:07 09/13/19 16:07 09/13/19 16:07 09/13/19 16:07 Intake & Output 09/14/19 09/15/19 09/16/19 06:59 06:59 06:59 Weight 68.2 kg General appearance: PRESENT: no acute distress, cooperative, well-developed, well-nourished Head exam: PRESENT: atraumatic, normocephalic Eye exam: PRESENT: conjunctiva pink, EOMI, PERRLA. ABSENT: scleral icterus Mouth exam: PRESENT: moist, tongue midline Respiratory exam: PRESENT: clear to auscultation vandana, symmetrical, unlabored. ABSENT: rales, rhonchi, wheezes Cardiovascular exam: PRESENT: RRR. ABSENT: diastolic murmur, rubs, systolic murmur Pulses: PRESENT: normal dorsalis pedis pul Vascular exam: PRESENT: normal capillary refill Gentrourinary exam: ABSENT: indwelling catheter Extremities exam: PRESENT: other - Left hemiparesis. ABSENT: calf tenderness, clubbing, pedal edema Neurological exam: PRESENT: alert, awake, oriented to person, oriented to place, oriented to situation, CN II-XII grossly intact, other - Primarily nonverbal; does answer a few simple questions. Follows directions. At baseline.. ABSENT: motor sensory deficit Psychiatric exam: PRESENT: appropriate affect, normal mood. ABSENT: homicidal ideation, suicidal ideation Skin exam: PRESENT: dry, warm. ABSENT: cyanosis, rash Results Laboratory Results: WBC 7.3 10^3/uL (4.0-10.5) 09/13/19 05:34 RBC 3.10 10^6/uL (4.35-5.55) L 09/13/19 05:34 Hgb 9.3 g/dL (13.5-17.0) L 09/13/19 05:34 Hct 26.2 % (37.9-51.0) L 09/13/19 05:34 MCV 84 fl (80-97) 09/13/19 05:34 MCH 30.0 pg (27.0-33.4) 09/13/19 05:34 MCHC 35.5 g/dL (32.0-36.0) 09/13/19 05:34 RDW 15.3 % (11.5-14.0) H 09/13/19 05:34 Plt Count 303 10^3/uL (150-450) 09/13/19 05:34 Lymph % (Auto) Not Reportable 09/06/19 20:57 [place] % (Auto) Not Reportable 09/06/19 20:57 Eos % (Auto) Not Reportable 09/06/19 20:57 Baso % (Auto) Not Reportable 09/06/19 20:57 Absolute Neuts (auto) Not Reportable 09/06/19 20:57 Absolute Lymphs (auto) Not Reportable 09/06/19 20:57 Absolute Monos (auto) Not Reportable 09/06/19 20:57 Absolute Eos (auto) Not Reportable 09/06/19 20:57 Absolute Basos (auto) Not Reportable 09/06/19 20:57 Total Counted 100 09/06/19 20:57 Seg Neutrophils % Not Reportable 09/06/19 20:57 Seg Neuts % (Manual) 91 % (42-78) H 09/06/19 20:57 Lymphocytes % (Manual) 3 % (13-45) L 09/06/19 20:57 Monocytes % (Manual) 4 % (3-13) 09/06/19 20:57 Eosinophils % (Manual) 0 % (0-6) 09/06/19 20:57 Basophils % (Manual) 2 % (0-2) 09/06/19 20:57 Abs Neuts (Manual) 11.1 10^3/uL (1.7-8.2) H 09/06/19 20:57 Abs Lymphs (Manual) 0.4 10^3/uL (0.5-4.7) L 09/06/19 20:57 Abs Monocytes (Manual) 0.5 10^3/uL (0.1-1.4) 09/06/19 20:57 Absolute Eos (Manual) 0.0 10^3/uL (0.0-0.6) 09/06/19 20:57 Abs Basophils (Manual) 0.2 10^3/uL (0.0-0.2) 09/06/19 20:57 Platelet Comment ADEQUATE 09/06/19 20:57 Anisocytosis SLIGHT 09/06/19 20:57 PT 17.5 SEC (11.4-15.4) H 09/06/19 20:57 INR 1.42 09/06/19 20:57 APTT 35.6 SEC (23.5-35.8) 09/06/19 20:57 Sodium 138.3 mmol/L (137-145) 09/13/19 05:34 Potassium 4.1 mmol/L (3.6-5.0) 09/13/19 05:34 Chloride 110 mmol/L (98-107) H 09/13/19 05:34 Carbon Dioxide 18 mmol/L (22-30) L 09/13/19 05:34 Anion Gap 10 (5-19) 09/13/19 05:34 BUN 23 mg/dL (7-20) H 09/13/19 05:34 Creatinine 1.42 mg/dL (0.52-1.25) H 09/13/19 05:34 Est GFR ( Amer) 59 (>60) L 09/13/19 05:34 Est GFR (MDRD) Non-Af 48 (>60) L 09/13/19 05:34 Glucose 99 mg/dL (75-110) 09/13/19 05:34 POC Glucose 111 mg/dL (70-110) H 09/13/19 16:05 Calcium 8.3 mg/dL (8.4-10.2) L 09/13/19 05:34 Magnesium 1.7 mg/dL (1.6-2.3) 09/10/19 04:34 Total Bilirubin 0.5 mg/dL (0.2-1.3) 09/06/19 20:57 Direct Bilirubin 0.3 mg/dL (0.0-0.4) 09/06/19 20:57 Neonat Total Bilirubin Not Reportable 09/06/19 20:57 Neonat Direct Bilirubin Not Reportable 09/06/19 20:57 Neonat Indirect Bili Not Reportable 09/06/19 20:57 AST 22 U/L (17-59) 09/06/19 20:57 ALT 9 U/L (<50) 09/06/19 20:57 Alkaline Phosphatase 135 U/L (38-126) H 09/06/19 20:57 Creatine Kinase 98 U/L (55-170) 09/06/19 20:57 CK-MB (CK-2) 4.39 ng/mL (<4.55) 09/06/19 20:57 Troponin I 0.032 ng/mL 09/06/19 20:57 Total Protein 7.9 g/dL (6.3-8.2) 09/06/19 20:57 Albumin 4.4 g/dL (3.5-5.0) 09/06/19 20:57 Triglycerides 144 mg/dL (<150) 09/08/19 04:26 Cholesterol 112.18 mg/dL (0-200) 09/08/19 04:26 LDL Cholesterol Direct 50 mg/dL (<100) 09/08/19 04:26 VLDL Cholesterol 29.0 mg/dL (10-31) 09/08/19 04:26 HDL Cholesterol 34 mg/dL (>40) L 09/08/19 04:26 TSH 0.52 uIU/mL (0.47-4.68) 09/07/19 05:32 Urine Color YELLOW 09/06/19 23:00 Urine Appearance TURBID 09/06/19 23:00 Urine pH 5.0 (5.0-9.0) 09/06/19 23:00 Ur Specific Power 1.011 09/06/19 23:00 Urine Protein 100 mg/dL (NEGATIVE) H 09/06/19 23:00 Urine Glucose (UA) 50 mg/dL (NEGATIVE) H 09/06/19 23:00 Urine Ketones NEGATIVE mg/dL (NEGATIVE) 09/06/19 23:00 Urine Blood SMALL (NEGATIVE) H 09/06/19 23:00 Urine Nitrite NEGATIVE (NEGATIVE) 09/06/19 23:00 Urine Bilirubin NEGATIVE (NEGATIVE) 09/06/19 23:00 Urine Urobilinogen NEGATIVE mg/dL (<2.0) 09/06/19 23:00 Ur Leukocyte Esterase LARGE (NEGATIVE) H 09/06/19 23:00 Urine WBC (Auto) >182 /HPF 09/06/19 23:00 Urine RBC (Auto) 14 /HPF 09/06/19 23:00 Urine Bacteria (Auto) 3+ /HPF 09/06/19 23:00 Urine WBC Clumps MANY /HPF 09/06/19 23:00 Squamous Epi Cells Auto 2 /HPF 09/06/19 23:00 Urine Ascorbic Acid NEGATIVE (NEGATIVE) 09/06/19 23:00 09/06/19 20:57 CK-MB (CK-2) 4.39 Troponin I 0.032 Impressions: Chest X-Ray 09/06/19 20:29 IMPRESSION: No evidence of acute cardiopulmonary disease. Head CT 09/06/19 20:29 IMPRESSION: No acute intracranial abnormality is identified. Dr. Todd was called and notified of the findings at 7:40 PM central time. Old right MCA infarct Generalized atrophy with microvascular ischemic changes. Modified Barium Swallow 09/07/19 00:00 IMPRESSION: LARYNGEAL PENETRATION AND ASPIRATION ABOVE. PLEASE SEE SPEECH PATHOLOGIST REPORT FOR OTHER FINDINGS AND RECOMMENDATIONS. Renal Ultrasound 09/07/19 00:00 IMPRESSION: Normal kidneys. Plan Plan of Treatment: Patient is discharged home into the care of family members. They have declined home health services. He is instructed to follow-up with his primary care provider within 1 week. Take medications as prescribed. Return to the emergency department as needed for concerning symptoms. Time Spent: Greater than 30 Minutes Stroke Is this a Stroke Patient?: No Acute Heart Failure - Is this a Heart Failure Patient?: No
== END 2019-09-13 19:30 | disposition home or self-care (01) | DRG 682 ==
LOC: ER 20:26 → EH 09-07 01:00 → 3N 09-07 02:53
PROVIDERS: ADMIT Emergency Medicine; ATTEND Emergency Medicine
DX: N17.9 Acute kidney failure, unspecified (principal); G93.41 Metabolic encephalopathy; N39.0 Urinary tract infection, site not specified; I69.354 Hemiplegia and hemiparesis following cerebral infarction affecting left non-dominant side; E87.5 Hyperkalemia; S51.812A Laceration without foreign body of left forearm, initial encounter; X58.XXXA Exposure to other specified factors, initial encounter; S80.811A Abrasion, right lower leg, initial encounter; E11.22 Type 2 diabetes mellitus with diabetic chronic kidney disease; I12.9 Hypertensive chronic kidney disease with stage 1 through stage 4 chronic kidney disease, or unspecified chronic kidney disease; N18.9 Chronic kidney disease, unspecified; I48.91 Unspecified atrial fibrillation; R13.10 Dysphagia, unspecified; G40.909 Epilepsy, unspecified, not intractable, without status epilepticus; B96.20 Unspecified Escherichia coli [E. coli] as the cause of diseases classified elsewhere; D50.9 Iron deficiency anemia, unspecified; N40.0 Benign prostatic hyperplasia without lower urinary tract symptoms; I69.320 Aphasia following cerebral infarction; Z87.891 Personal history of nicotine dependence; Z88.0 Allergy status to penicillin; Z79.01 Long term (current) use of anticoagulants; Z90.49 Acquired absence of other specified parts of digestive tract; Z95.5 Presence of coronary angioplasty implant and graft; Z79.82 Long term (current) use of aspirin; Z82.3 Family history of stroke; Z82.49 Family history of ischemic heart disease and other diseases of the circulatory system; Z79.899 Other long term (current) drug therapy
CPT/HCPCS: 36415; 70450; 71045; 74230; 76775; 80048; 80053; 80061; 81001; 82550; 82553; 82962; 83735; 84132; 84443; 84484; 85025; 85027; 85610; 85730; 87040; 87077; 87086; 87088; 87150; 87186; 93005; 93010; 96361; 96365; 96375; 99291; J0360; J0610; J1644; J1815; J2185; J3475; J3490; J7030; J7042